=== PATIENT | female | born 1970 | race Caucasian/White ===

== ENCOUNTER 2019-09-30 01:54 | Emergency (ER) | payer OTHER ==
[~2019-09-30] VITALS: Ht 162.6 cm; Wt 46.0 kg
[2019-09-30 03:58] LABS: BASO % 0.4 % (0.0-1.0); EOS % 0.6 % (0.0-3.0); HEMATOCRIT 40.5 % (36.0-47.0); HEMOGLOBIN 13.8 g/dl (12.0-15.5); LYMPH # 1.3 10^3/uL (1.5-5.0); LYMPH % 24.4 % (24.0-44.0); MEAN CORPUSCULAR HEMOGLOBIN 31.7 pg (27.0-33.0); MEAN CORPUSCULAR HGB CONC 34.1 g/dl (32.0-36.5); MEAN CORPUSCULAR VOLUME 92.9 fl (80.0-96.0); MONO # 0.5 10^3/uL (0.0-0.8); MONO % 8.5 % (0.0-5.0); NEUTROPHILS # 3.5 10^3/uL (1.5-8.5); NEUTROPHILS % 65.9 % (36.0-66.0); PLATELET COUNT, AUTOMATED 200 10^3/uL (150-450); RED BLOOD COUNT 4.36 10^6/uL (4.00-5.40); WHITE BLOOD COUNT 5.3 10^3/uL (4.0-10.0)
[2019-09-30 03:59] LABS: VENOUS BASE EXCESS 0.4 (-2.0-2.0); VENOUS HCO3 24.2 MEQ/L (23.0-27.0); VENOUS O2 SATURATION 87.1 % (60.0-80.0); VENOUS PARTIAL PRESSURE CO2 36.6 mmHg (38.0-50.0); VENOUS PH 7.438 UNITS (7.330-7.430); VENOUS STANDARD HCO3 24.6 MEQ/L; VENOUS TOTAL CO2 25.3 MEQ/L (24.0-28.0)
--- NOTE | 2019-09-30 04:29 | REP ---
Clinical: Dyspnea. Technique: Portable upright AP view. Findings: Mediastinum and cardiac silhouette normal. Lung velazquez clear. No focal consolidation or effusion. No pneumothorax. Skeletal structures intact. Impression: No acute cardiopulmonary process. Electronically Signed by Campos Patel MD 09/30/2019 04:20 A
[2019-09-30 04:42] LABS: ALT/SGPT 30 U/L (12-78); BILIRUBIN,DIRECT 0.1 MG/DL (0.0-0.2); BILIRUBIN,TOTAL 0.8 MG/DL (0.2-1.0); BLOOD UREA NITROGEN 14 MG/DL (7-18); CALCIUM LEVEL 8.9 MG/DL (8.5-10.1); CARBON DIOXIDE LEVEL 23 MEQ/L (21-32); CHLORIDE LEVEL 111 MEQ/L (98-107); CK-MB VALUE MASS < 1.0 NG/ML (<3.6); CPK CREATINE PHOSPHOKINASE 110 U/L (26-192); CREATININE FOR GFR 0.66 MG/DL (0.55-1.30); GLOMERULAR FILTRATION RATE > 60.0 (>58); GLUCOSE, FASTING 90 MG/DL (70-100); LIPASE 204 U/L (73-393); MB/CK RELATIVE INDEX 0.91 (< OR =4); SODIUM LEVEL 142 MEQ/L (136-145); TOTAL PROTEIN 7.4 GM/DL (6.4-8.2); TROPONIN I < 0.02 NG/ML (< 0.10)
[2019-09-30] MEDS ORDERED: SIMETHICONE 80 MG CHEW TAB PO ONE (04:45)
[2019-09-30] MEDS ORDERED: MAALOX 30 ML SUSP *UDC PO ONE (04:45)
[2019-09-30] MEDS ORDERED: PROT1TAB2 PO (04:50)
[2019-09-30] MEDS ORDERED: SIME180C PO (04:50)
[2019-09-30 05:00] VITALS: BP 94/50
--- NOTE | 2019-09-30 19:06 | ECGEPIP ---
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
== END 2019-09-30 05:21 | disposition home or self-care (01) ==
LOC: M ED 01:54
DX: K29.70 Gastritis, unspecified, without bleeding (principal); R14.2 Eructation; F41.9 Anxiety disorder, unspecified; K58.9 Irritable bowel syndrome, unspecified; Z88.0 Allergy status to penicillin; Z88.1 Allergy status to other antibiotic agents

== ENCOUNTER → 2019-10-28 | Outpatient (CLI) | payer OTHER ==
[~2019-10-28] MED LIST: ACET-908 PO; CARA1TAB6 PO; HYDR-3363 PO; MELA3TAB49 PO; MYLA41.6 PO; PROT1TAB2 PO; SIME180C PO
== END ==
LOC: M LABSMTC 11:20
PROVIDERS: ATTEND Anesthesiology
DX: Z01.818 Encounter for other preprocedural examination (principal); Z11.59 Encounter for screening for other viral diseases
CPT/HCPCS: C9803; U0002

== ENCOUNTER 2019-10-30 11:07 | Day surgery (SDC) | payer OTHER ==
[~2019-10-30] VITALS: Ht 162.6 cm; Wt 46.9 kg
[~2019-10-30 11:07] MED LIST changes: +LIDOCAINE 2% 100MG/5ML SDV (FOR ANES.) As Ordered ONE; +NS 1,000 ML IV ONE; +propofoL 200 MG/20 ML VIAL As Ordered ONE
[2019-10-30] MEDS ORDERED: fentaNYL 100 MCG/2 ML INJECTION (J3010) As Ordered ONE (11:56)
--- NOTE | 2019-10-30 12:16 | ROOR ---
Patient Name: Deanne Parham Procedure Date: 10/30/2019 11:59 AM Date of : 1970 Age: 48 Room: [facility] Gender: Female Note Status: Finalized Procedure: Upper Endoscopy + Biopsies Indications: Epigastric abdominal pain, Heartburn Providers: Rodrigo Harris MD Referring MD: KAILEE DUGAN MD Requesting Provider: Medicines: Monitored Anesthesia Care Complications: No immediate complications. Procedure: Pre-Anesthesia Assessment: - The heart rate, respiratory rate, oxygen saturations, blood pressure, adequacy of pulmonary ventilation, and response to care were monitored throughout the procedure. The Endoscope was introduced through the mouth, and advanced to the second part of duodenum. The upper GI endoscopy was accomplished without difficulty. The patient tolerated the procedure well. Findings: The Z-line was irregular and was found 40 cm from the incisors. Multiple biopsies were obtained with cold forceps for evaluation to rule out Russo's Esophagus randomly at the gastroesophageal junction. A small hiatal hernia was present. No other significant abnormalities were identified in a careful examination of the stomach. Biopsies were taken with a cold forceps in the gastric antrum for Helicobacter pylori testing. The exam of the duodenum was otherwise normal. Impression: - Z-line irregular, 40 cm from the incisors. - Small hiatal hernia. - Multiple biopsies were obtained at the gastroesophageal junction. - Biopsies were taken with a cold forceps for Helicobacter pylori testing. - The examination was otherwise normal. Recommendation: - Patient has a contact number available for emergencies. The signs and symptoms of potential delayed complications were discussed with the patient. Return to normal activities tomorrow. Written discharge instructions were provided to the patient. - High fiber diet. - Discharge patient to home. - Continue present medications. - Await pathology results. - Telephone GI clinic for pathology results in 1 week. - Return to referring physician. - The findings and recommendations were discussed with the patient's family. Rodrigo Harris MD Rodrigo Harris MD 10/30/2019 12:15:53 PM Electronically signed by Rodrigo Harris MD Number of Addenda: 0 Note Initiated On: 10/30/2019 11:59 AM Estimated Blood Loss: Estimated blood loss: none.
[2019-10-30 12:50] VITALS: BP 95/56
== END 2019-10-30 13:01 | disposition home or self-care (01) ==
LOC: M OPP 11:07
PROVIDERS: ATTEND Internal Medicine Gastroenterology
DX: K22.8 Other specified diseases of esophagus (principal); K44.9 Diaphragmatic hernia without obstruction or gangrene; R10.13 Epigastric pain; K21.9 Gastro-esophageal reflux disease without esophagitis; Z79.899 Other long term (current) drug therapy; Z88.0 Allergy status to penicillin; Z88.1 Allergy status to other antibiotic agents; Z88.5 Allergy status to narcotic agent
CPT/HCPCS: 43239; 88305; J3010

== ENCOUNTER → 2020-03-03 | Outpatient (CLI) | payer OTHER ==
[~2020-03-03] MED LIST changes: -LIDOCAINE 2% 100MG/5ML SDV (FOR ANES.) As Ordered ONE; -NS 1,000 ML IV ONE; -propofoL 200 MG/20 ML VIAL As Ordered ONE
--- NOTE | 2020-03-05 06:48 | SLEEPCENT ---
DATE: 03/03/2020 ORDERED BY: Dr. Jodee Napier Nocturnal polysomnography was performed for evaluation of sleep physiology in this patient with a recent history of disrupted sleep and excessive daytime somnolence. There was 8 hours and 5 minutes of data reviewed. There was 361 minutes of sleep identified. Sleep latency was moderately prolonged at 39.5 minutes. REM sleep was quite delayed at 330 minutes. Sleep architecture showed poor progress with one REM episode late in the study. Overall sleep efficiency was 76%. The electrocardiogram showed a sinus rhythm with somewhat small complexes. Average heart rate 60 beats per minute. Rate ranged 50-80 beats per minute. EEG showed alpha intrusion throughout. No focal events were identified, and there were normal waveforms for wake and sleep, though REM sleep was primarily tonic. There was only one respiratory event of 10 seconds in duration or greater. The apnea- hypopnea index was well within normal limits at 0.2. Some snoring was noted; however, there were no significant arousals from respiratory events. Some limb activity was also noted but no trains of events. Limb movement arousal index was 3.4. Oxygen saturations were normal throughout the night. IMPRESSION: Normal nocturnal polysomnography with mild snoring and possible medications effect. MTDD
== END ==
LOC: M SLEEP 20:00
PROVIDERS: ATTEND Nurse Practitioner Family
DX: R40.0 Somnolence (principal)

== ENCOUNTER → 2020-04-28 | Outpatient (REF) | payer OTHER ==
[~2020-04-28] MED LIST changes: +SERT-138 PO
[2020-04-28 17:02] LABS: C REACTIVE PROTEIN QUANTITATIV < 0.30 MG/DL (0.00-0.30); FERRITIN 65 NG/ML (8-252); IRON (FE) 84 UG/DL (50-170); RHEUMATOID FACTOR QUANT < 10.0 IU/ML (<15.0); URIC ACID 2.7 MG/DL (2.6-6.0)
[2020-04-28 17:10] LABS: THYROID PEROXIDASE ANTIBODY 39.6 U/ML (<60.0)
[2020-05-01 01:11] LABS: CYCLIC CITRULLINATED PEPTIDE 5 units (0-19); Lyme Disease IgG/IgM Antibodie <0.91 ISR (0.00-0.90); Lyme Disease IgM Ab Quantitati <0.80 index (0.00-0.79); SSA SJOGRENS A <0.2 AI (0.0-0.9); SSB SJOGRENS B <0.2 AI (0.0-0.9)
== END ==
LOC: M SFHCRHEU 12:08
PROVIDERS: ATTEND Internal Medicine
DX: R76.8 Other specified abnormal immunological findings in serum (principal); M25.541 Pain in joints of right hand; M25.542 Pain in joints of left hand
CPT/HCPCS: 73130; 82728; 83540; 84550; 85652; 86140; 86200; 86235; 86376; 86431; 86617; G0463

== ENCOUNTER → 2020-04-28 | Outpatient (CLI) | payer OTHER ==
[~2020-04-28] MED LIST changes: -SERT-138 PO
--- NOTE | 2020-04-29 03:28 | REP ---
INDICATION: PAIN IN UNSPECIFIED JOINT COMPARISON: None. TECHNIQUE: AP, lateral, bilateral oblique views right and left hand. FINDINGS: The osseous structures and joint spaces are intact and essentially age-appropriate bilaterally. No significant arthritic degenerative changes are noted. Very minimal joint space narrowing at the interphalangeal joints cannot be excluded (left greater than right). There is no evidence for acute fracture or dislocation. Surrounding soft tissues are unremarkable. No subcutaneous emphysema or radiodense foreign body. IMPRESSION: Essentially age-appropriate examination. No acute fracture or dislocation. <Electronically signed by Campos Patel > 04/29/20 [id number]
== END ==
LOC: M RAD 14:50
PROVIDERS: ATTEND Internal Medicine
DX: M25.541 Pain in joints of right hand (principal); M25.542 Pain in joints of left hand

== ENCOUNTER → 2022-06-21 | Outpatient (CLI) | payer OTHER ==
[~2022-06-21] MED LIST changes: -ACET-908 PO; +ACET-910 PO; +SERT-138 PO; -SIME180C PO; +SIME180C25 PO
== END ==
LOC: M WHC 14:38
PROVIDERS: ATTEND Family Medicine
DX: Z12.31 Encounter for screening mammogram for malignant neoplasm of breast (principal)

== ENCOUNTER → 2023-06-27 | Outpatient (CLI) | payer OTHER | LOC: M WHC 12:59 | PROVIDERS: ATTEND Student in an Organized Health Care Education/Training Program | DX: Z12.31 Encounter for screening mammogram for malignant neoplasm of breast (principal); R92.323 Mammographic fibroglandular density, bilateral breasts ==

== ENCOUNTER → 2024-08-23 | Outpatient (CLI) | payer OTHER ==
[~2024-08-23] MED LIST changes: -SIME180C25 PO; +SIME1CAP4 PO
== END ==
LOC: M WHC 15:07
PROVIDERS: ATTEND Nurse Practitioner Primary Care
DX: Z12.31 Encounter for screening mammogram for malignant neoplasm of breast (principal); R92.333 Mammographic heterogeneous density, bilateral breasts